=== PATIENT | male | born 1965 | race Caucasian/White ===

== ENCOUNTER → 2020-01-25 12:50 | Outpatient (BNVA) | payer BC, SELFPAY | PROVIDERS: PCP Nurse Practitioner Family; Visit Provider Nurse Practitioner Family | DX: M79.675 Pain in left toe(s) (principal); S62.639A Displaced fracture of distal phalanx of unspecified finger, initial encounter for closed fracture | CPT/HCPCS: 73630 ==

== ENCOUNTER → 2020-02-02 14:25 | Outpatient (BNVA) | payer BC, SELFPAY | PROVIDERS: PCP Nurse Practitioner Family; Visit Provider Podiatrist Foot & Ankle Surgery | DX: S92.515A Nondisplaced fracture of proximal phalanx of left lesser toe(s), initial encounter for closed fracture (principal); B35.3 Tinea pedis; X58.XXXA Exposure to other specified factors, initial encounter | CPT/HCPCS: 73630 ==

== ENCOUNTER 2020-02-02 15:33 | Outpatient (CLI) | payer BC, SELFPAY | END 2020-02-02 15:34 | disposition home or self-care (01) | LOC: SPT 15:33 | PROVIDERS: PCP Nurse Practitioner Family; Visit Provider Podiatrist Foot & Ankle Surgery | DX: Z46.89 Encounter for fitting and adjustment of other specified devices (principal); S92.515D Nondisplaced fracture of proximal phalanx of left lesser toe(s), subsequent encounter for fracture with routine healing; X58.XXXD Exposure to other specified factors, subsequent encounter | CPT/HCPCS: L3031; L4361 ==